=== PATIENT | male | born 1985 | race Caucasian/White ===

== ENCOUNTER 2016-08-22 09:04 | Inpatient (IN) | payer MEDICAID ==
[~2016-08-22] VITALS: Ht 185.4 cm; Wt 85.2 kg
[2016-08-22] MEDS ORDERED: SODIUM CHLORIDE 0.9% 1,000 ML IV ONE (09:28)
[2016-08-22] MEDS ORDERED: SODIUM CHLORIDE 0.9% 1,000ML IVBOLUS ONE (09:30)
[2016-08-22] MEDS ORDERED: SODIUM CHLORIDE FLUSH 10ML SYR IVF ONE (09:30)
[2016-08-22] MEDS ORDERED: LORazepam 2 MG/ML, 1ML ONE (09:31)
[2016-08-22] MEDS ORDERED: AMLO5TAB2 PO (10:17)
[2016-08-22] MEDS ORDERED: LOSA1TAB18 PO (10:17)
[2016-08-22] MEDS ORDERED: HYDR25TA6 PO (10:17)
[2016-08-22] MEDS ORDERED: INSU100C5 SQ-INSULIN (10:17)
[2016-08-22 10:23] LABS: ASPARTATE AMINO TRANSFERASE 21 U/L (15-37); BLOOD UREA NITROGEN 38 mg/dL (7-18)
[2016-08-22] MEDS ORDERED: DIPH,PERTUSS(ACELL),TET VAC/PF 0.5 ML IM-VACC ONE ×2 (11:11→12:00)
[2016-08-22 11:13] LABS: DAU SCREEN DISCLAIMER
[2016-08-22] MEDS ORDERED: BACITRACIN ZINC OINT 500U/GM, 0.9 GM ONE (11:22)
[2016-08-22] MEDS ORDERED: SODIUM CHLORIDE FLUSH 10ML SYR IVF PRN (11:30)
[2016-08-22] MEDS ORDERED: BISACODYL 10 MG SUPP PR PRN (12:00)
[2016-08-22] MEDS ORDERED: DOCUSATE 100 MG CAPSULE PO PRN ×2 (12:00→20:00)
[2016-08-22] MEDS ORDERED: ONDANSETRON ODT 4 MG PO PRN (12:00)
[2016-08-22] MEDS ORDERED: POLYETHYLENE GLYCOL 17 GM PACKET PO PRN (12:00)
[2016-08-22] MEDS ORDERED: LABETALOL 5MG/ML, 20ML IVPush PRN ×2 (12:00→20:00)
[2016-08-22] MEDS ORDERED: DEXTROSE 50%, 50ML SYRINGE IVPush PRN (12:30)
[2016-08-22] MEDS ORDERED: GLUCAGON 1 MG IM PRN ×2 (12:30→20:00)
[2016-08-22] MEDS ORDERED: DEXTROSE 4 GM TAB.CHEW PO PRN (12:30)
[2016-08-22] MEDS: INSULIN ASPART 100 UNITS/ML, PEN SQ-INSULIN SCH ×4 (13:00→23:21)
[2016-08-22] MEDS ORDERED: LORazepam 2 MG/ML, 1ML IVPush PRN (13:30)
[2016-08-22 13:38] VITALS: BP 137/73
[2016-08-22] MEDS: POTASSIUM CHLORIDE 10 MEQ in SODIUM CHLORIDE 0.9% 1,000 ML IV SCH (13:44)
[2016-08-22] MEDS: HEPARIN 5,000 UNITS/ML, 1ML SQ SCH ×2 (14:12→20:15)
[2016-08-22] MEDS ORDERED: INSULIN ASPART 100 UNITS/ML, PEN SQ-INSULIN SCH (16:00)
[2016-08-22] MEDS: PHENYTOIN 100 MG CAPSULE PO SCH ×2 (17:03→22:08)
[2016-08-22 20:07] VITALS: BP 133/63
[2016-08-22] MEDS: ONDANSETRON 2MG/ML, 2ML IVPush PRN (20:15)
[2016-08-22] MEDS: SODIUM CHLORIDE FLUSH 10ML SYR IVF SCH (20:16)
[2016-08-22] MEDS ORDERED: SODIUM CHLORIDE FLUSH 10ML SYR IVF SCH (21:00)
[2016-08-22] MEDS ORDERED: PROMETHAZINE 25 MG/ML, 1ML IM PRN (23:30)
[2016-08-23 02:30] VITALS: BP 142/66
[2016-08-23] MEDS: ONDANSETRON 2MG/ML, 2ML IVPush PRN ×2 (03:55→20:45)
[2016-08-23] MEDS: HEPARIN 5,000 UNITS/ML, 1ML SQ SCH ×3 (03:58→20:46)
[2016-08-23 05:37] LABS: BLOOD UREA NITROGEN 53 mg/dL (7-18)
[2016-08-23 07:10] VITALS: BP 132/63
[2016-08-23] MEDS: POTASSIUM CHLORIDE 10 MEQ in SODIUM CHLORIDE 0.9% 1,000 ML IV SCH (07:30)
[2016-08-23] MEDS: INSULIN ASPART 100 UNITS/ML, PEN SQ-INSULIN SCH ×2 (07:34→20:44)
[2016-08-23] MEDS ORDERED: POTASSIUM CHLORIDE 10 MEQ in SODIUM CHLORIDE 0.9% 1,000 ML IV SCH ×2 (08:00→12:30)
[2016-08-23] MEDS ORDERED: PHARMACY MAY ADJ FOR RENAL FX MC PRN (08:00)
[2016-08-23 08:30] LABS: BLOOD UREA NITROGEN 59 mg/dL (7-18)
[2016-08-23] MEDS: LOSARTAN 50MG TABLET PO SCH (08:38)
[2016-08-23] MEDS: PHENYTOIN 100 MG CAPSULE PO SCH ×3 (08:39→22:06)
[2016-08-23] MEDS: SODIUM CHLORIDE FLUSH 10ML SYR IVF SCH ×2 (08:39→20:46)
[2016-08-23] MEDS: AMLODIPINE 5 MG TABLET PO SCH (08:39)
[2016-08-23] MEDS ORDERED: REGULAR INSULIN 62.5 UNITS in SODIUM CHLORIDE 0.9% 249.375 ML IV PRN (08:47)
[2016-08-23] MEDS ORDERED: HYDROCHLOROTHIAZIDE 25 MG TABLET PO SCH (09:00)
[2016-08-23] MEDS ORDERED: HYDROCHLOROTHIAZIDE 12.5 MG CAPSULE PO SCH (09:00)
[2016-08-23] MEDS ORDERED: SODIUM CHLORIDE 0.9% 1,000 ML IV SCH ×2 (09:00)
[2016-08-23 12:45] LABS: BLOOD UREA NITROGEN 63 mg/dL (7-18)
[2016-08-23] MEDS ORDERED: D5%-0.45% NACL 1,000 ML IV SCH ×2 (15:30)
[2016-08-23 16:13] LABS: BLOOD UREA NITROGEN 61 mg/dL (7-18)
[2016-08-24 01:28] VITALS: BP 157/70
[2016-08-24 01:38] LABS: BLOOD UREA NITROGEN 60 mg/dL (7-18)
[2016-08-24] MEDS: ONDANSETRON 2MG/ML, 2ML IVPush PRN ×3 (03:02→21:00)
[2016-08-24] MEDS: HEPARIN 5,000 UNITS/ML, 1ML SQ SCH ×3 (03:02→20:48)
[2016-08-24 04:36] LABS: BLOOD UREA NITROGEN 66 mg/dL (7-18)
[2016-08-24] MEDS ORDERED: REGULAR INSULIN 62.5 UNITS in SODIUM CHLORIDE 0.9% 249.375 ML IV SCH (06:00)
[2016-08-24] MEDS: SODIUM CHLORIDE 0.9% 1,000 ML IV SCH ×2 (06:38→12:34)
[2016-08-24] MEDS: REGULAR INSULIN 62.5 UNITS in SODIUM CHLORIDE 0.9% 249.375 ML IV SCH ×2 (07:20→14:38)
[2016-08-24] MEDS: PROMETHAZINE 25 MG/ML, 1ML IM PRN ×2 (07:42→17:36)
[2016-08-24] MEDS: INSULIN ASPART 100 UNITS/ML, PEN SQ-INSULIN SCH ×3 (07:44→16:27)
[2016-08-24 08:43] LABS: BLOOD UREA NITROGEN 71 mg/dL (7-18)
[2016-08-24] MEDS ORDERED: REGULAR INSULIN 62.5 UNITS in SODIUM CHLORIDE 0.9% 249.375 ML IV PRN (08:47)
[2016-08-24] MEDS: LOSARTAN 50MG TABLET PO SCH (09:50)
[2016-08-24] MEDS: AMLODIPINE 5 MG TABLET PO SCH (09:50)
[2016-08-24] MEDS: PHENYTOIN 100 MG CAPSULE PO SCH ×3 (09:50→20:46)
[2016-08-24] MEDS: SODIUM CHLORIDE FLUSH 10ML SYR IVF SCH ×2 (09:51→20:45)
[2016-08-24 13:38] LABS: BLOOD UREA NITROGEN 68 mg/dL (7-18)
[2016-08-24] MEDS ORDERED: D5%-0.45% NACL 1,000 ML IV SCH (15:30)
[2016-08-24 17:07] LABS: BLOOD UREA NITROGEN 58 mg/dL (7-18)
[2016-08-24] MEDS ORDERED: ONDANSETRON 2MG/ML, 2ML IVPush PRN (20:00)
[2016-08-24] MEDS: D5%-0.45% NACL 1,000 ML IV SCH (20:47)
[2016-08-24 21:05] LABS: BLOOD UREA NITROGEN 52 mg/dL (7-18)
[2016-08-25 01:06] LABS: BLOOD UREA NITROGEN 48 mg/dL (7-18)
[2016-08-25] MEDS: D5%-0.45% NACL 1,000 ML IV SCH (04:27)
[2016-08-25] MEDS: HEPARIN 5,000 UNITS/ML, 1ML SQ SCH ×3 (04:28→22:00)
[2016-08-25 07:00] LABS: BLOOD UREA NITROGEN 39 mg/dL (7-18)
[2016-08-25] MEDS: PHENYTOIN 100 MG CAPSULE PO SCH ×3 (09:56→21:13)
[2016-08-25] MEDS: AMLODIPINE 5 MG TABLET PO SCH (09:56)
[2016-08-25] MEDS: SODIUM CHLORIDE FLUSH 10ML SYR IVF SCH ×2 (09:57→21:14)
[2016-08-25] MEDS: LOSARTAN 50MG TABLET PO SCH (09:57)
[2016-08-25 14:57] LABS: BLOOD UREA NITROGEN 32 mg/dL (7-18)
[2016-08-25 15:30] VITALS: BP 158/94
[2016-08-25] MEDS ORDERED: INSULIN ASPART 100 UNITS/ML, PEN SQ-INSULIN SCH (16:00)
[2016-08-25] MEDS: ONDANSETRON 2MG/ML, 2ML IVPush PRN (19:59)
[2016-08-25 20:36] VITALS: BP 167/92
[2016-08-25] MEDS: PROMETHAZINE 25 MG/ML, 1ML IM PRN (21:13)
[2016-08-25] MEDS ORDERED: D5%-0.45% NACL 1,000 ML IV SCH (22:00)
[2016-08-26 02:51] VITALS: BP 172/95
[2016-08-26 03:58] VITALS: BP 164/91
[2016-08-26] MEDS: HEPARIN 5,000 UNITS/ML, 1ML SQ SCH ×3 (05:29→22:00)
[2016-08-26 05:51] LABS: BLOOD UREA NITROGEN 28 mg/dL (7-18)
[2016-08-26 07:21] VITALS: BP 174/97
[2016-08-26] MEDS ORDERED: INSULIN DETEMIR 100 UNITS/ML, PEN SQ-INSULIN SCH (08:00)
[2016-08-26] MEDS: ONDANSETRON 2MG/ML, 2ML IVPush PRN ×2 (08:14→23:06)
[2016-08-26] MEDS: PHENYTOIN 100 MG CAPSULE PO SCH (09:00)
[2016-08-26] MEDS: PROMETHAZINE 25 MG/ML, 1ML IM PRN (09:27)
[2016-08-26] MEDS: SODIUM CHLORIDE FLUSH 10ML SYR IVF SCH ×2 (09:27→20:50)
[2016-08-26] MEDS: AMLODIPINE 5 MG TABLET PO SCH (11:16)
[2016-08-26] MEDS: LEVETIRACETAM 500 MG TABLET PO SCH ×2 (11:17→20:50)
[2016-08-26] MEDS: LOSARTAN 50MG TABLET PO SCH (11:17)
[2016-08-26 20:00] VITALS: BP 171/87
[2016-08-27 02:00] VITALS: BP 197/95
[2016-08-27 04:41] LABS: BLOOD UREA NITROGEN 32 mg/dL (7-18)
[2016-08-27 04:45] LABS: ASPARTATE AMINO TRANSFERASE 25 U/L (15-37)
[2016-08-27] MEDS: HEPARIN 5,000 UNITS/ML, 1ML SQ SCH ×2 (06:00→14:00)
[2016-08-27 07:15] VITALS: BP 189/119
[2016-08-27] MEDS: LEVETIRACETAM 500 MG TABLET PO SCH (08:30)
[2016-08-27] MEDS: SODIUM CHLORIDE FLUSH 10ML SYR IVF SCH (08:31)
[2016-08-27] MEDS: AMLODIPINE 5 MG TABLET PO SCH (08:31)
[2016-08-27] MEDS: LOSARTAN 50MG TABLET PO SCH (08:31)
[2016-08-27] MEDS ORDERED: LEVE500T53 PO (17:04)
== END 2016-08-27 17:29 | disposition home or self-care (01) | DRG 100 ==
LOC: ED 10:29 → EDIP 11:19 → 4WST 13:21 → CCU 08-23 09:15 → 4WST 08-23 19:36 → CCU 08-24 06:29 → 3NE 08-25 15:31
PROVIDERS: ADMIT Hospitalist; ATTEND Hospitalist
DX: G40.909 Epilepsy, unspecified, not intractable, without status epilepticus (principal); N17.0 Acute kidney failure with tubular necrosis; E10.10 Type 1 diabetes mellitus with ketoacidosis without coma; F84.0 Autistic disorder; N13.30 Unspecified hydronephrosis; D72.829 Elevated white blood cell count, unspecified; D64.9 Anemia, unspecified; E10.21 Type 1 diabetes mellitus with diabetic nephropathy; E10.22 Type 1 diabetes mellitus with diabetic chronic kidney disease; E10.649 Type 1 diabetes mellitus with hypoglycemia without coma; E86.0 Dehydration; F43.9 Reaction to severe stress, unspecified; I12.9 Hypertensive chronic kidney disease with stage 1 through stage 4 chronic kidney disease, or unspecified chronic kidney disease; N18.2 Chronic kidney disease, stage 2 (mild); Z81.1 Family history of alcohol abuse and dependence; Z91.14 Patient's other noncompliance with medication regimen; Z82.49 Family history of ischemic heart disease and other diseases of the circulatory system; Z68.24 Body mass index [BMI] 24.0-24.9, adult
CPT/HCPCS: 36415; 36600; 70450; 71010; 76770; 80048; 80053; 80185; 80307; 81001; 82010; 82800; 82947; 82962; 83036; 83735; 84100; 85025; 87081; 90715; 93005; 95819; 96360; 96361; J1644; J1815; J2405; J2550; J3480; J7030; J7050